=== PATIENT | male | born 1970 | race Caucasian/White ===

== ENCOUNTER 2017-02-04 22:22 | Emergency (ER) | payer SELFPAY ==
[~2017-02-04] VITALS: Ht 188 cm; Wt 109.1 kg
[2017-02-04 22:26] VITALS: BP 148/95; TEMP 98.9
[2017-02-04] MEDS ORDERED: NORCO 325 MG-7.1 TAB PO (22:58)
[2017-02-04] MEDS ORDERED: AMOXICILLIN 50500 MG PO (22:58)
[2017-02-04 23:16] VITALS: PULSE 75
== END 2017-02-04 23:16 | disposition home or self-care (01) ==
LOC: COL.ER 22:22
DX: K04.7 Periapical abscess without sinus (principal)